=== PATIENT | female | born 1940 | race Caucasian/White ===

== ENCOUNTER → 2021-07-10 | Day surgery (SDC) | payer BC ==
[~2021-07-10] MED LIST: CHRO1TAB6 PO; GLUC-11 PO; HYDR12.572 PO; LORA10TA3 PO; MULT-445 PO; [UNRECOGNIZED DRUG - CODE] PO; ibuprofen PEG
[2021-07-10 13:15] VITALS: BP 171/83
== END | disposition home or self-care (01) ==
LOC: SURG 12:52
PROVIDERS: ATTEND Anesthesiology
DX: M25.562 Pain in left knee (principal); M79.18 Myalgia, other site; M54.10 Radiculopathy, site unspecified; I10 Essential (primary) hypertension; Z98.890 Other specified postprocedural states; Z79.899 Other long term (current) drug therapy; Z87.442 Personal history of urinary calculi
CPT/HCPCS: 99204; G0463

== ENCOUNTER → 2021-07-10 | Outpatient (CLI) | payer BC ==
[2021-07-10 13:15] VITALS: BP 171/83
--- NOTE | 2021-07-10 17:33 | RAD ---
EXAM: AP and lateral views left knee DATE: 07/10/2021 2:15 PM INDICATION: Reason: KNEE PAIN, NKI / Spl. Instructions: / History: COMPARISON: No Prior FINDINGS: No acute fracture or dislocation. Small left knee joint effusion. Joint spaces are preserved without significant degenerative/proliferative change. Vascular calcifications are seen. IMPRESSION: No acute fracture or dislocation. Small left knee joint effusion. Electronically signed by: Sebastián Aflredo MD (07/10/2021 5:30 PM) [id number]
== END ==
LOC: RAD 14:06
PROVIDERS: ATTEND Anesthesiology
DX: M25.462 Effusion, left knee (principal)
CPT/HCPCS: 73560

== ENCOUNTER → 2021-07-24 | Day surgery (SDC) | payer BC ==
[~2021-07-24] MED LIST changes: +BUPIVACAINE MPF 0.25% 10 ML VIAL. ONE; +IOHEXOL 300 MG/ML 50 ML VIAL. ONE; +LIDOCAINE 1% PF 30 ML VIAL. ONE; +methylPREDNISolone ACETATE 40 MG/ML VIAL. ONE
[2021-07-24 15:04] VITALS: BP 158/90
== END | disposition home or self-care (01) ==
LOC: SURG 13:41
PROVIDERS: ATTEND Anesthesiology
DX: M17.0 Bilateral primary osteoarthritis of knee (principal); M79.18 Myalgia, other site; G89.29 Other chronic pain; I10 Essential (primary) hypertension; Z98.890 Other specified postprocedural states; Z79.899 Other long term (current) drug therapy
CPT/HCPCS: 20610; 77002; A4209; A4657; A4930; J1030; J3490; Q9967